=== PATIENT | male | born 1970 | race Caucasian/White ===

== ENCOUNTER 2017-12-13 11:29 | Emergency (ER) | payer OTHER ==
[2017-12-13 11:37] VITALS: BP 164/96; PULSE 89; RESP 20; TEMP 98.8
[2017-12-13] MEDS ORDERED: AMOXIC-POT CLAV 875MG STARTER 2 EACH TABLET PO STA (12:08)
[2017-12-13] MEDS ORDERED: LORATADINE-PSEUDOEPH 5-120 MG 1 EACH TAB.ER.12H PO STA (12:08)
[2017-12-13] MEDS ORDERED: AMOXIC-POT CLAV 875-125MG 1 EACH TAB PO STA (12:08)
--- NOTE | 2017-12-13 12:08 | ED ---
General Adult HPI - General Chief complaint: Upper Respiratory Infection Stated complaint: congested Time Seen by Provider: 12/13/17 11:42 Source: patient, RN notes reviewed, old records reviewed Mode of arrival: ambulatory Limitations: no limitations - History of Present Illness Initial comments: This is a 47-year-old male to the ER for evaluation. Patient resents for cough congestion inability to breathe secondary to Raynaud's. Congestionpatient states his has similar complaints. Patient has no medical history no travel history no sick contacts. No modifying factors for symptoms. Patient states she is cannot clear his nose, feels very stuffy - Related Data Previous Rx's Medication Instructions Recorded Amoxic-Pot Clav 875-125Mg 1 tab PO Q12HR #20 tablet 12/13/17 [Augmentin 875-125] Cetirizine HCl/Pseudoephedrine 1 each PO BID #20 tab.er.12h 12/13/17 [Zyrtec-D Tablet] Allergies Allergy/AdvReac Type Severity Reaction Status Date / Time codeine AdvReac Rash/Hives Verified 12/13/17 11:37 Review of Systems ROS Statement: Those systems with pertinent positive or pertinent negative responses have been documented in the HPI. ROS Other: All systems not noted in ROS Statement are negative. 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 Absent: scleral icterus, conjunctival injection, periorbital swelling ENT exam: Present: normal exam, mucous membranes moist Neck exam: Present: normal inspection. Absent: tenderness, meningismus, lymphadenopathy Respiratory exam: Present: normal lung sounds bilaterally. Absent: respiratory distress, wheezes, rales, rhonchi, stridor Cardiovascular Exam: Present: regular rate, normal rhythm, normal heart sounds. Absent: systolic murmur, diastolic murmur, rubs, gallop, clicks GI/Abdominal exam: Present: soft, normal bowel sounds. Absent: distended, tenderness, guarding, rebound, rigid Extremities exam: Present: normal inspection, full ROM, normal capillary refill. Absent: tenderness, pedal edema, joint swelling, calf tenderness Back exam: Present: normal inspection Neurological exam: Present: alert, oriented X3, CN II-XII intact Psychiatric exam: Present: normal affect, normal mood Skin exam: Present: warm, dry, intact, normal color. Absent: rash Course Vital Signs 12/13/17 11:35 Temperature 98.8 F Pulse Rate 89 Respiratory 20 Rate Blood Pressure 164/96 O2 Sat by Pulse 96 Oximetry Medical Decision Making - Medical Decision Making 47 male the ER with sinusitis, patient be put on antibiotic therapy and discharged home Disposition Clinical Impression: Sinusitis, Upper respiratory infection Disposition: HOME SELF-CARE Instructions: Sinusitis (ED), Upper Respiratory Infection (ED) Prescriptions: Amoxic-Pot Clav 875-125Mg [Augmentin 875-125] 1 tab PO Q12HR #20 tablet Cetirizine HCl/Pseudoephedrine [Zyrtec-D Tablet] 1 each PO BID #20 tab.er.12h Is patient prescribed a controlled substance at d/c from ED?: No Referrals: None,Stated [Primary Care Provider] - 1-2 days
--- NOTE | 2017-12-15 07:57 | CDI ---
Documentation Clarification OP Dear Sylvester MAYEN, DO Please do addendum to ED report for HPI , Physical exam and MDM. Thank you, Radha Belle Bench Manager If you have any question, Please contact safety and skill based pay manager at [phone] [facility]
== END 2017-12-13 12:30 | disposition home or self-care (01) ==
LOC: EC 11:29
DX: J32.9 Chronic sinusitis, unspecified (principal); J06.9 Acute upper respiratory infection, unspecified; I73.00 Raynaud's syndrome without gangrene; F17.200 Nicotine dependence, unspecified, uncomplicated; Z88.5 Allergy status to narcotic agent
CPT/HCPCS: 99283

== ENCOUNTER 2018-01-02 18:55 | Emergency (ER) | payer OTHER ==
[2018-01-02 19:29] VITALS: PULSE 98; RESP 18
--- NOTE | 2018-01-02 20:16 | CT ---
EXAMINATION TYPE: CT brain catia stanley DATE OF EXAM: 01/02/2018 COMPARISON: NONE HISTORY: Fall with head injury CT DLP: [address] Brain: Unenhanced CT of the brain was performed. The ventricles, basal cisterns and sulci overlying the cerebral convexities demonstrate a normal appe arance. There is no evidence for intracranial hemorrhage or sulcal effacement. No mass effects are seen. If symptoms persist consider MRI. Osseous calvarium is intact. IMPRESSION: No acute intracranial process CT Cervical Spine: Unenhanced CT of the cervical spine was performed with bone and soft tissue window settings submitted . Coronal and sagittal reconstruction is obtained. There is normal alignment and prevertebral soft tissues. I do not see evidence for fracture or sublu xation. No significant degenerative changes are present. The lung apices are clear. IMPRESSION: No evidence for acute fracture or subluxation of the cervical spine.
--- NOTE | 2018-01-02 20:21 | ED ---
General Adult HPI - General Chief complaint: Fall Stated complaint: Head injury Time Seen by Provider: 01/02/18 19:50 Source: patient, RN notes reviewed Mode of arrival: ambulatory Limitations: no limitations - History of Present Illness Initial comments: 47-year-old male presents to the emergency department for a chief complaint of headache injury 2 hours ago. Patient states he was walking down the steps when he fell off the side of the second to last step and landed on his side and hit his head against the cement. Patient denies loss of consciousness, visual changes, headache, nausea or vomiting. Patient denies confusion and feels like himself. Patient states his elbows are scraped up but he does not have pain in his elbows. No pain elsewhere in his body. He states he wanted to make sure his head was okay. Patient denies any blood thinners. Patient has no other complaints at this time. Patient denies neck pain, back pain, shortness of breath, abdominal pain, chest pain, nausea or vomiting. - Related Data Previous Rx's Medication Instructions Recorded Amoxic-Pot Clav 875-125Mg 1 tab PO Q12HR #20 tablet 12/13/17 [Augmentin 875-125] Cetirizine HCl/Pseudoephedrine 1 each PO BID #20 tab.er.12h 12/13/17 [Zyrtec-D Tablet] Allergies Allergy/AdvReac Type Severity Reaction Status Date / Time bee venom protein (honey bee) AdvReac Anaphylaxis Verified 01/02/18 19:29 codeine AdvReac Rash/Hives Verified 01/02/18 19:29 Review of Systems ROS Statement: Those systems with pertinent positive or pertinent negative responses have been documented in the HPI. ROS Other: All systems not noted in ROS Statement are negative. 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 Absent: scleral icterus, conjunctival injection, periorbital swelling Pupils: Present: normal accommodation ENT exam: Present: normal exam, normal oropharynx (Uvula midline), mucous membranes moist, TM's normal bilaterally (No blood noted), other (Negative raccoon and lorenz sign.) Neck exam: Present: normal inspection, full ROM. Absent: tenderness (No cervical tenderness), meningismus, lymphadenopathy Respiratory exam: Present: normal lung sounds bilaterally. Absent: respiratory distress, wheezes, rales, rhonchi, stridor Cardiovascular Exam: Present: regular rate, normal rhythm, normal heart sounds. Absent: systolic murmur, diastolic murmur, rubs, gallop, clicks Back exam: Present: normal inspection, full ROM (Patient has full flexion and extension and rotation bilaterally.). Absent: tenderness (No tenderness in the back), paraspinal tenderness (No tenderness from the cervical through the lumbar spine.), vertebral tenderness (No tenderness of the cervical through lumbar spine.) Neurological exam: Present: alert, oriented X3, CN II-XII intact, other (GCS 15) Course Vital Signs 01/02/18 19:24 Temperature 98.8 F Pulse Rate 98 Respiratory 18 Rate Blood Pressure 168/92 O2 Sat by Pulse 98 Oximetry Medical Decision Making - Medical Decision Making 47-year-old male presents to the emergency department for a chief complaint of head injury 2 hours ago. Patient fell sideways off the second to last step onto concrete for and landed on his left side. Patient states he also hit his head. Patient states he caught most of his momentum before hitting his head. Patient denies loss of consciousness or blood thinners. Patient denies any confusion, vomiting, severe headache. Examination was unremarkable. There is a very small one cm by 1 cm hematoma of the left parietal scalp. No focal neuro deficits. Strength 5 out of 5 in upper and lower extremities bilaterally. Cranial nerves intact. Patient's is insistent on having a CAT scan done. CT brain shows no evidence for intracranial hemorrhage. No mass effect seen. No acute intracranial process. CT C-spine shows no evidence for acute fracture or subluxation. Patient will be discharged home with return precautions. These were discussed with him. will monitor him tonight. Tylenol for pain relief. Patient will follow up with primary care in 1-2 days or return if symptoms worsen. Disposition Clinical Impression: Head injury Disposition: HOME SELF-CARE Condition: Good Instructions: Head Injury (ED) Additional Instructions: Please take Tylenol for pain relief. Please monitor for any signs of confusion , vomiting, severe headache. Have a family member wake you every 4 hours tonight to make sure you are waking. Return to the emergency department if you have any worsening symptoms. Otherwise follow-up with primary care in 1-2 days. Is patient prescribed a controlled substance at d/c from ED?: No Referrals: Malika Singleton MD [Primary Care Provider] - 1-2 days Time of Disposition: 20:28
[2018-01-02 20:52] VITALS: BP 165/90; TEMP 98.7
== END 2018-01-02 20:52 | disposition home or self-care (01) ==
LOC: EC 18:55
DX: S00.03XA Contusion of scalp, initial encounter (principal); F17.200 Nicotine dependence, unspecified, uncomplicated; Z91.030 Bee allergy status; Z88.5 Allergy status to narcotic agent; W10.9XXA Fall (on) (from) unspecified stairs and steps, initial encounter; Y93.01 Activity, walking, marching and hiking
CPT/HCPCS: 70450; 72125; 99283